=== PATIENT | female | born 1955 | race Caucasian/White ===

== ENCOUNTER 2020-04-22 10:31 | Outpatient (REF) | payer OTHER, SELFPAY ==
[2020-04-22 11:27] LABS: MANUAL DIFF FLAG NO
[2020-04-22 11:48] LABS: Basophils Percent Auto 0.4 % (0-2); Eosinophils Absolute Auto 0.2 X10*3/uL (0.0-0.4); Eosinophils Percent Auto 2.1 % (0-4); Hematocrit 40.7 % (37-47); Hemoglobin 13.3 g/dl (12.0-16.0); Imm Gran Abs Auto 0.04 X10*3/uL (0.00-0.03); Imm Gran Pct Auto 0.5 % (0.0-0.4); Lymphocytes Absolute Auto 2.6 X10*3/uL (1.2-4.9); Lymphocytes Percent Auto 31.7 % (20-40); Mean Corpuscular HGB Conc 32.7 g/dl (31.0-35.0); Mean Corpuscular Hemoglobin 28.2 pg (27.0-33.0); Mean Corpuscular Volume 86.4 fL (80-98); Mean Platelet Volume 9.9 fL (9.4-12.3); Monocytes Absolute Auto 0.6 X10*3/uL (0.1-1.2); Monocytes Percent Auto 7.4 % (2-11); Neutrophils Absolute Auto 4.7 X10*3/uL (2.0-8.3); Neutrophils Percent Auto 57.9 % (45-73); Platelet Count 232 X10*3/uL (160-400); Red Blood Count 4.71 X10*6/uL (4.20-5.50); Red Cell Distribution Width 12.8 % (11.0-16.0); White Blood Count 8.1 X10*3/uL (4.8-10.8)
[2020-04-22 12:05] LABS: Anion Gap 13 (12-20); Blood Urea Nitrogen 22 mg/dL (9-16); Calcium 9.4 mg/dL (8.4-10.2); Carbon Dioxide 30 mmol/L (22-29); Chloride 103 mmol/L (96-108); Cholesterol 198 mg/dL; Estimated Glomerular Filt Rate > 60; Glucose Fasting 85 mg/dL (60-99); HDL Cholesterol 57 mg/dL; LDL Cholesterol Calculated 105 mg/dl; Potassium 4.5 mmol/l (3.3-5.1); Sodium 141 mmol/L (135-145); Triglycerides 184 mg/dL
[2020-04-22 12:15] LABS: Vitamin D 25-OH Total 28.2 ng/mL (>30)
[2020-04-22 12:26] LABS: Microalbum/Creatinine Ratio Ur 8.7 ug/mg cr
[2020-04-22 13:55] LABS: Vitamin B12 417 pg/mL (200-900)
[2020-04-23 17:53] LABS: LDL Cholesterol Direct 126 mg/dL (<100)
[2020-05-04 04:13] LABS: Fructosamine 235 umol/L (205-285)
== END 2020-04-22 10:32 | disposition home or self-care (01) ==
LOC: HO.LAB 10:31
PROVIDERS: PCP Internal Medicine; Visit Provider Internal Medicine Endocrinology, Diabetes & Metabolism
DX: E11.42 Type 2 diabetes mellitus with diabetic polyneuropathy (principal)
CPT/HCPCS: 36415; 80048; 80061; 82043; 82306; 82607; 82985; 83721; 85025

== ENCOUNTER → 2020-04-25 07:49 | Outpatient (BNVA) | payer OTHER, SELFPAY | PROVIDERS: PCP Internal Medicine; Referring Provider Internal Medicine; Visit Provider Internal Medicine Endocrinology, Diabetes & Metabolism | DX: E11.42 Type 2 diabetes mellitus with diabetic polyneuropathy (principal); Z79.4 Long term (current) use of insulin; E78.5 Hyperlipidemia, unspecified; E66.9 Obesity, unspecified; I10 Essential (primary) hypertension | CPT/HCPCS: 82947; 99212 ==

== ENCOUNTER 2021-05-19 08:02 | Outpatient (REF) | payer OTHER, SELFPAY ==
[2021-05-19 10:38] LABS: Alanine Aminotransferase 38 U/L (0-31); Albumin Level 4.3 g/dL (3.5-5.0); Alkaline Phosphatase 82 U/L (39-117); Anion Gap 12 (12-20); Aspartate Amino Transferase 27 U/L (5-31); Bilirubin Total 0.8 mg/dL (0.0-1.0); Blood Urea Nitrogen 19 mg/dL (9-16); Calcium 9.5 mg/dL (8.4-10.2); Carbon Dioxide 30 mmol/L (22-29); Chloride 106 mmol/L (96-108); Cholesterol 202 mg/dL; Estimated Glomerular Filt Rate > 60; Glucose Fasting 96 mg/dL (60-99); HDL Cholesterol 46 mg/dL; LDL Cholesterol Calculated 116 mg/dl; Potassium 4.5 mmol/L (3.3-5.1); Sodium 143 mmol/L (135-145); Triglycerides 201 mg/dL
[2021-05-19 11:22] LABS: Microalbum/Creatinine Ratio Ur 7.6 ug/mg cr
[2021-05-20 04:52] LABS: LDL Cholesterol Direct 134 mg/dL (<100)
== END 2021-05-19 08:03 | disposition home or self-care (01) ==
LOC: HO.LAB 08:02
PROVIDERS: PCP Internal Medicine; Visit Provider Nurse Practitioner Gerontology
DX: E11.9 Type 2 diabetes mellitus without complications (principal); E78.5 Hyperlipidemia, unspecified; I10 Essential (primary) hypertension; E66.9 Obesity, unspecified; Z79.4 Long term (current) use of insulin
CPT/HCPCS: 36415; 80053; 80061; 82043; 82947; 83036; 83721; 99215; Q3014

== ENCOUNTER 2021-10-31 09:11 | Outpatient (REF) | payer OTHER, SELFPAY ==
--- NOTE | ~2021-10-31 | XR_ITS ---
EXAMINATION: XR CHEST CLINICAL INFORMATION: Cough COMPARISON: Previous chest x-ray July 2013 TECHNIQUE: 2 views of the chest were obtained. FINDINGS: The cardiac and mediastinal contours are normal. The lungs are clear. There is no pleural effusion or pneumothorax. There are degenerative changes of the spine. XR/XR chest 2V IMPRESSION: No evidence for acute disease in the chest.
[2021-10-31 12:33] LABS: Influenza A PCR NEGATIVE (Negative); Influenza B PCR NEGATIVE (Negative); Resp Syncy Virus RNA Qual PCR NEGATIVE (Negative); SARS COV2 PCR INHOUSE NEGATIVE (Negative)
== END 2021-10-31 09:12 | disposition home or self-care (01) ==
LOC: HO.HMGCX 09:11
PROVIDERS: Visit Provider Physician Assistant
DX: R05.9 Cough, unspecified (principal)
CPT/HCPCS: 0241U; 71046

== ENCOUNTER 2022-06-18 06:02 | Outpatient (REF) | payer OTHER, SELFPAY ==
[2022-06-18 06:08] LABS: MANUAL DIFF FLAG NO
[2022-06-18 07:46] LABS: Basophils Percent Auto 0.6 % (0-2); Eosinophils Absolute Auto 0.1 X10*3/uL (0.0-0.4); Eosinophils Percent Auto 2.2 % (0-4); Hematocrit 41.5 % (37.0-47.0); Hemoglobin 13.5 g/dl (12.0-16.0); Imm Gran Abs Auto 0.02 X10*3/uL (0.00-0.03); Imm Gran Pct Auto 0.3 % (0.0-0.4); Mean Corpuscular HGB Conc 32.5 g/dl (31.0-35.0); Mean Corpuscular Hemoglobin 27.6 pg (27.0-33.0); Mean Corpuscular Volume 84.7 fL (80.0-98.0); Monocytes Absolute Auto 0.6 X10*3/uL (0.1-1.2); Monocytes Percent Auto 10.2 % (2-11); Neutrophils Absolute Auto 3.5 x10*3/uL (2.0-8.3); Neutrophils Percent Auto 55.7 % (45-73); Platelet Count 225 X10*3/uL (160-400); White Blood Count 6.3 X10*3/uL (4.8-10.8)
[2022-06-18 08:27] LABS: Alanine Aminotransferase 22 U/L (0-31); Albumin Level 4.3 g/dL (3.5-5.0); Alkaline Phosphatase 84 U/L (39-117); Anion Gap 13 (12-20); Aspartate Amino Transferase 20 U/L (5-31); Blood Urea Nitrogen 15 mg/dL (9-16); Calcium 9.4 mg/dL (8.4-10.2); Carbon Dioxide 29 mmol/L (22-29); Chloride 104 mmol/L (96-108); Cholesterol 200 mg/dL; Estimated Glomerular Filt Rate > 60; Glucose Fasting 100 mg/dL (60-99); HDL Cholesterol 44 mg/dL; LDL Cholesterol Calculated 124 mg/dl; Potassium 4.8 mmol/L (3.3-5.1); Sodium 141 mmol/L (135-145); Total Protein 6.6 g/dL (6.5-8.0); Triglycerides 162 mg/dL
[2022-06-18 08:32] LABS: TSH reflex Free T4 1.04 uIU/mL (0.32-4.0); Vitamin D 25-OH Total 29.5 ng/mL (>30)
[2022-06-18 08:55] LABS: Creatinine Urine 208.87 mg/dL; Microalbum/Creatinine Ratio Ur 7.1 ug/mg cr
== END 2022-06-18 06:03 | disposition home or self-care (01) ==
LOC: HO.LAB 06:02
PROVIDERS: PCP Internal Medicine; Visit Provider Nurse Practitioner Family
DX: Z00.00 Encounter for general adult medical examination without abnormal findings (principal); E11.9 Type 2 diabetes mellitus without complications; E78.5 Hyperlipidemia, unspecified
CPT/HCPCS: 36415; 80053; 80061; 82043; 82306; 84443; 85025

== ENCOUNTER 2022-07-08 13:41 | Outpatient (REF) | payer OTHER, SELFPAY ==
--- NOTE | ~2022-07-08 | MM_ITS ---
EXAMINATION: BONE DENSITOMETRY CLINICAL INDICATION: Asymptomatic menopausal state. COMPARISON: Previous BD dated 10/22/2017 and baseline BD dated 06/21/2015. TECHNIQUE: Using a Peek@[employer] DXA System (software version: 13.1) manufactured by [employer], dual-energy x-ray absorptiometry was performed of the lumbar spine and left hip. The images are of good technical quality. Summary results are attached. FINDINGS: AP SPINE L1-L4: Current: BMD 1.445 g/cm2, Z-score 2.7, T-score 2.2, normal, 6.3% increase from previous, 0.3% increase from baseline (<5% change is not significant). Prior: BMD 1.359 g/cm2. Baseline: BMD 1.440 g/cm2. LEFT FEMUR, NECK: Current: BMD 1.057 g/cm2, Z-score 1.0, T-score 0.1, normal. Prior: BMD 1.062 g/cm2. Baseline: BMD 1.132 g/cm2. LEFT FEMUR, TOTAL: Current: BMD 1.147 g/cm2, Z-score 1.6, T-score 1.1, normal, 0.9% increase from previous, 7.1% decrease from baseline (<5% change is not significant). Prior: BMD 1.137 g/cm2. Baseline: BMD 1.234 g/cm2. IDENTIFIED RISK FACTORS: Secondary osteoporosis (early menopause, type 1 diabetes). Hysterectomy. HISTORY OF FRACTURE: None listed. MEDICATIONS: Vitamin D. MM/XR DEXA axial skeleton IMPRESSION: 1. DIAGNOSIS: Normal bone density based on the lowest T-score value of 0.1 in the femoral neck applying World Health Organization criteria. 2. 10-YEAR FRACTURE RISK PREDICTION, FRAX: According to the guidelines, FRAX calculation should only be performed on patients in the osteopenia bone density category. Therefore, FRAX was not performed on this patient.? 3. Treatment Recommendations: NOF guidelines recommend consideration for treatment in postmenopausal women and men age 50 and older presenting with the following: -A hip or vertebral (clinical or morphometric) fracture. -T-score less than or equal to -2.5 at the femoral neck or spine after appropriate evaluation to exclude secondary causes. -Low bone mass at the hip or spine and a 10-year fracture probability by FRAX of greater than or equal to 3% for hip fracture or greater than or equal to 20% for major osteoporotic fracture based on the [place] adapted WHO algorithm. 4. Other Recommendations: All treatment decisions require clinical judgment and consideration of individual patient factors, including patient preferences, comorbidities, previous drug use, risk factors not captured in the FRAX model (e.g. frailty, falls, vitamin D deficiency, increased bone turnover, interval significant decline in bone density) and possible under or overestimation of fracture risk by FRAX. FUTURE SCAN RECOMMENDATION: People with diagnosed cases of osteoporosis or at high risk for fracture should have regular bone mineral density tests. For patients eligible for Medicare, routine testing is allowed once every 2 years. The testing frequency can be increased to one year for patients who have rapidly progressing disease, those who are receiving or discontinuing medical therapy to restore bone mass, or have additional risk factors.
--- NOTE | ~2022-07-08 | MM_ITS ---
EXAMINATION: MM SCREENING DIGITAL BREAST TOMOSYNTHESIS, BILATERAL CLINICAL INFORMATION: Screening. Asymptomatic. The lifetime risk of breast cancer based on the Tyrer-Cuzick Model is 4%. COMPARISON: Mammography: 10/22/2017, 08/07/2016 TECHNIQUE: Digital breast tomosynthesis is performed in both the craniocaudal and mediolateral oblique views along with computer-aided detection (CAD). Synthesized 2D images are generated from the tomosynthesis. FINDINGS: The breasts are almost entirely fatty (ACR BI-RADS breast composition Category a). Background stromal and fibroglandular densities are stable. No developing density or architectural abnormality. Incidental intramammary node posterior 3:00 left breast noted. Again, there are scattered bilateral round, rim, predominantly dermal calcifications as well as viraj vascular calcifications. The axilla and skin contours are unremarkable. No significant changes from prior studies. MM/MM tomosynthesis screening BI IMPRESSION: No mammographic evidence of malignancy. ASSESSMENT: BI-RADS 2: Benign RECOMMENDATION: Routine annual mammography screening. This patient's information was entered into a reminder system with a target due date for their next mammogram.
== END 2022-07-08 13:42 | disposition home or self-care (01) ==
LOC: HO.MAMMO 13:41
PROVIDERS: PCP Nurse Practitioner Family; Visit Provider Nurse Practitioner Family
DX: Z12.31 Encounter for screening mammogram for malignant neoplasm of breast (principal); Z13.820 Encounter for screening for osteoporosis; Z78.0 Asymptomatic menopausal state
CPT/HCPCS: 77063; 77067; 77080

== ENCOUNTER 2022-11-23 10:13 | Outpatient (AMB) | payer OTHER, SELFPAY ==
--- NOTE | 2022-11-23 10:59 | MHC.OFFWIV ---
Intake Vital Signs 11/23/22 11:01 Height 5 ft 4.5 in BP 134/70 Blood Pressure Location Rt brachial Position Sitting Pulse 82 Pulse Source Pulse Oximeter Temp 97 F Temp Source Temporal Artery Scan Pulse Oximetry (%) 97 Oxygen Delivery Method Room Air Intake Visit Reasons: EP, Bug Bite Left Leg Intake Note: pt is here c/o bug bite on her left leg. Patient Tobacco Use Status: Never used Tobacco Allergies morphine Allergy (Unknown, Verified 11/23/22 13:14) vomiting penicillin G [Penicillin G] Allergy (Unknown, Verified 11/23/22 13:14) RASH penicillin V Allergy (Unknown, Verified 11/23/22 13:14) vomiting Sulfa (Sulfonamide Antibiotics) [Sulfa (Sulfonamides)] Allergy (Unknown, Verified 11/23/22 13:14) NAUSEA/VOMITING/RASH, vomiting, vomiting pravastatin Adverse Reaction (Unknown, Verified 11/23/22 13:14) myalgias Medication List - Last Reconciled 11/23/22 by Feliciano Marquez MD albuterol sulfate 90 mcg/actuation 2 puffs inhalation Q6H PRN aspirin (Adult Aspirin Regimen) 81 mg PO DAILY blood sugar diagnostic (FreeStyle Lite Strips) As directed 3 x/day cholecalciferol (vitamin D3) 25 mcg PO DAILY ciprofloxacin HCl 250 mg PO BID ezetimibe 10 mg PO DAILY insulin glargine (Lantus Solostar U-100 Insulin) 25 units (0.25 mL) subcut DAILY 30 days lancets (FreeStyle Lancets) As directed liraglutide (Victoza 3-Geremias) 1.8 mg (0.3 mL) subcut DAILY lisinopril 20 mg PO DAILY 30 days loratadine (Allergy Relief (loratadine)) 10 mg PO DAILY 90 days omeprazole 20 mg PO QAM pen needle, diabetic (BD Ultra-Fine Cele Pen Needle) 1 ea subcut BID 30 days Do you need a note to return to daycare/school/sports/work: No HPI EP, Bug Bite Left Leg HPI Details 67-year-old female presents to the office for a sick visit. Patient is reporting a bug bite on the left leg. Has not been feeling well in the last 48 hours. Feeling tired and decreased appetite. Blood sugars are fluctuating. 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 Obesity (BMI 30-39.9) Surgical History History of back surgery Hx of hernia repair Hx of hysterectomy Hx of shoulder surgery Family History Mother No known problems Father Diabetes Other Substance use disorder Social History Household Members: None Housing: House Alcohol intake: current Alcohol intake frequency: holidays/special occasions only Patient Tobacco Use Status: Never used Tobacco e-Cigarette/Vaping Use: Never Used Second Hand Smoke Exposure: No service: No Current occupational status: retired and disabled Cognitive needs: No Hearing needs: No Vision needs: Yes (Glasses) Physical Exam Vital Signs: Last Vital Signs Temp 97 F 11/23/22 11:01 Pulse 82 11/23/22 11:01 BP 134/70 11/23/22 11:01 Pulse Ox 97 11/23/22 11:01 Oxygen Delivery Method Room Air 11/23/22 11:01 Skin Other: Left leg: Thigh: Posterior surface: 2 erythematous areas with central hyperemia. Minimal induration. Assessment & Plan Assessment & Plan (1) Cellulitis: Code(s): L03.90 - Cellulitis, unspecified Plan: If symptoms do not improve to follow-up here. Antibiotics called in. Medications: New ciprofloxacin HCl 250 mg PO BID 10 tabs 0RF Coding Level of Care Code Est Pt Level 3 (70924) Diagnoses Cellulitis L03.90
[2022-11-23 11:01] VITALS: BP 134/70; PULSE 82; TEMP 36.1; O2SAT 97
== END 2022-11-23 11:36 | disposition home or self-care (01) ==
PROVIDERS: PCP Nurse Practitioner Family; Visit Provider Internal Medicine
DX: L03.90 Cellulitis, unspecified (principal)
CPT/HCPCS: 99213

== ENCOUNTER 2023-08-23 08:22 | Outpatient (REF) | payer OTHER, SELFPAY | END 2023-08-23 08:23 | disposition home or self-care (01) | LOC: HO.MAMMO 08:22 | PROVIDERS: PCP Internal Medicine; Visit Provider Internal Medicine | DX: Z12.31 Encounter for screening mammogram for malignant neoplasm of breast (principal) | CPT/HCPCS: 77063; 77067 ==

== ENCOUNTER → 2023-08-23 09:15 | Outpatient (BNV) | payer OTHER, SELFPAY | PROVIDERS: PCP Internal Medicine; Visit Provider Radiology Diagnostic Radiology | DX: Z12.31 Encounter for screening mammogram for malignant neoplasm of breast (principal) | CPT/HCPCS: 77063; 77067 ==

== ENCOUNTER 2023-09-27 17:09 | Outpatient (AMB) | payer MEDICARE, OTHER, SELFPAY ==
--- NOTE | 2023-09-27 17:37 | MHC.PC.OV ---
Vital Signs 09/27/23 17:38 Height 5 ft 4.5 in Weight 217 lb BMI 36.7 BP 170/82 H Blood Pressure Location Lt brachial Position Sitting Intake Visit Reasons: Annual PE- see comments Intake Note: Patient here for an annual physical Training Administrator Required: No Accompanied by: Self / Same As Patient Allergies morphine Allergy (Unknown, Verified 09/27/23 17:59) vomiting penicillin G [Penicillin G] Allergy (Unknown, Verified 09/27/23 17:59) RASH penicillin V Allergy (Unknown, Verified 09/27/23 17:59) vomiting Sulfa (Sulfonamide Antibiotics) [Sulfa (Sulfonamides)] Allergy (Unknown, Verified 09/27/23 17:59) NAUSEA/VOMITING/RASH, vomiting, vomiting pravastatin Adverse Reaction (Unknown, Verified 09/27/23 17:59) myalgias metformin Adverse Reaction (Intermediate, Uncoded 09/27/23 18:04) abdominal discomfort Medication List - Last Reconciled 09/27/23 by Winnie Gandara MD albuterol sulfate 90 mcg/actuation 2 puffs inhalation Q6H PRN aspirin (Adult Aspirin Regimen) 81 mg PO DAILY blood sugar diagnostic (FreeStyle Lite Strips) As directed 3 x/day cholecalciferol (vitamin D3) 25 mcg PO DAILY ezetimibe 10 mg PO DAILY insulin glargine (Lantus Solostar U-100 Insulin) 25 units (0.25 mL) subcut DAILY 30 days lancets (FreeStyle Lancets) As directed lisinopril 20 mg PO DAILY 30 days omeprazole 20 mg PO QAM pen needle, diabetic (BD Ultra-Fine Cele Pen Needle) 1 ea subcut BID 30 days Tobacco use date assessed: 09/27/23 Fall risk assessment: 1 Fall in past year Last assessed Fall Risk: 09/27/23 Dental Screening Dental Screen Date: 09/27/23 Did you have a dental visit in the last 12 months?: Yes Did you have a dental problem in the last 6 months where you did not have access to dental care?: No Was dental information given to patient?: Patient has dentist HPI HPI Comments History of Present Illness Details This is a 67-year-old female with diabetes mellitus type 2 that comes for her physical exam. A1c within goal. Diabetic eye exam will be tomorrow. No need for Pap smear due to age and hysterectomy. Mammogram done August 2023 was normal. Had a Cologuard in June 2022 and next Cologuard should be 2025. No chest pain or shortness of breath. Doing well. Blood pressure elevated because she has been out of lisinopril for months. Blood pressure will be recheck in 3 weeks by nurse navigator. 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 Diabetes type 2, controlled Surgical History History of back surgery Hx of shoulder surgery Hx of hernia repair Hx of hysterectomy Family History Mother No known problems Father Diabetes Other Substance use disorder Social History Household Members: None Housing: House Alcohol intake: current Alcohol intake frequency: holidays/special occasions only Patient Tobacco Use Status: Never used Tobacco e-Cigarette/Vaping Use: Never Used Second Hand Smoke Exposure: No service: No Current occupational status: retired and disabled Cognitive needs: No Hearing needs: No Vision needs: Yes (Glasses) Questionnaire PHQ-9 Over the last 2 weeks, how often have you been bothered by any of the following problems? 1. Little interest or pleasure in doing things: not at all 2. Feeling down, depressed, or hopeless: not at all 3. Trouble falling or staying asleep, or sleeping too much: not at all 4. Feeling tired or having little energy: not at all 5. Poor appetite or overeating: not at all 6. Feeling bad about yourself - or that you are a failure or have let yourself or your family down: not at all 7. Trouble concentrating on things, such as reading the newspaper or watching television: not at all 8. Moving or speaking so slowly that other people could have noticed. Or the opposite - being so fidgety or restless that you have been moving around a lot more than usual: not at all 9. Thoughts that you would be better off or of hurting yourself in some way: not at all Total score: 0 Depression Screening Interpretation: Negative Depression Screening Done: Yes 36079 - PHQ-9 Billing: Yes Source: Developed by Drs. Guero Esparza, Elizabet Maldonado, Cecil Cedeno and colleagues, with an educational matthew from [employer]. Thrive Questionnaire Date Thrive assessed: 09/27/23 I am a: Patient What is your living situation today?: I have a steady place to live Within the past 12 months, did the food you bought not last and you didn't have the money to get more?: Never true Within the past 12 months, did you worry whether your food would run out before you got money to buy more?: Never true Do you have trouble paying for medicines?: No Do you have trouble getting transportation to medical appointments?: No Do you have trouble paying your heating and electricity bill?: No Do you have trouble taking care of your child, family member or friend?: No Do you have trouble with day-to-day activities such as bathing, preparing meals, shopping, managing finances, etc.?: No Are you currently unemployed and looking for a job?: No Are you interested in more education?: No Please select the resources that you would like help with: None Currently or been in a relationship where the following occur: no concerns reported THRIVE Score: 0 AUDIT C Alcohol Use Questionnaire (AUDIT-C) 1. How often do you have a drink containing alcohol?: Never Total Score: 0 KEITH-7 AMB Questionnaire KEITH-7 Date KEITH - 7 assessed: 09/27/23 Feeling nervous, anxious, or on edge: 0 = Not at all Not being able to stop or control worryin = Not at all Worrying too much about different things: 0 = Not at all Trouble relaxin = Not at all Being so restless that it is hard to sit still: 0 = Not at all Becoming easily annoyed or irritable: 0 = Not at all Feeling afraid as if something awful might happen: 0 = Not at all Total KEITH-7 score (0-4 normal; 5-9 mild; 10-14 moderate; 15-21 severe): 0 Source: Developed by Elizabet Dominique Joel, Cecil Cedeno and colleagues, with an educational matthew from [employer]. KEITH-7 Assessment Billing KEITH-7 Assessment Tool: KEITH-7 Assessment 99803 Review of Systems Const All systems reviewed & are unremarkable except as noted in HPI and below Eyes Reports no additional complaints, Denies change in vision and Denies other visual disturbances Card Denies chest pain at rest, Denies chest pain with activity, Denies edema, Denies irregular heart rhythm, Denies claudication, Denies dyspnea, Denies dyspnea on exertion, Denies orthopnea, Denies paroxysmal nocturnal dyspnea and Denies slow heart rate Resp Denies cough, Denies dyspnea and Denies dyspnea on exertion Physical exam (Primary Care) Vital Signs: Last Vital Signs BP 170/82 H 09/27/23 17:38 BMI result Body Mass Index 36.7 Tobacco/Smoking Status: Tobacco use Status Tobacco use date assessed 09/27/23 09/27/23 17:47 Patient Tobacco Use Status Never used Tobacco 09/27/23 17:47 e-Cigarette/Vaping Use Never Used 09/27/23 17:47 PHQ-9: PHQ-9 Score PHQ-9: Total score 0 09/28/23 07:35 Depression Screening Interpretation: Negative Thrive Assessment: Date of Thrive Assessment Date Thrive assessed 09/27/23 09/27/23 17:47 Currently or been in a relationship where the following occur: no concerns reported Const Orientation/consciousness: patient oriented x3 HENMT Head: Yes normal to inspection, Yes normocephalic and Yes atraumatic Ears: external ears normal Eyes General: appearance normal, both eyes and all related structures Eyelids: Yes eyelids normal Conjunctivae: conjunctivae normal Neck Neck: Yes normal visual inspection and Yes supple Resp Effort & Inspection: normal respiratory effort Auscultation: clear to auscultation bilaterally Cardio Jugular venous distension: no JVD Rate: regular rate Rhythm: regular rhythm Heart sounds: S1 normal heart sound present and S2 normal heart sound present GI Inspection: Yes normal to inspection Palpation (GI): Soft to palpation and nontender Auscultation: normal bowel sounds Skin General skin exam: no rashes or lesions noted Neuro General: patient oriented x3 and no focal motor deficits Extrem General: Yes full ROM Psych Appearance: grossly normal Assessment and Plan Assessment & Plan (1) Adult general medical exam: Code(s): Z00.00 - Encounter for general adult medical examination without abnormal findings Plan: Repeat in a year. 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 Start Ozempic. A1c goal is equal or less than 7%. Orders: Orders Lipid Panel Today E78.5 - Hyperlipidemia, unspecified Comprehensive [place]. Panel Fast Today E11.9 - Type 2 diabetes mellitus without complications AMB Hemoglobin A1c 09/27/23 E11.9 - Type 2 diabetes mellitus without complications Microalbumin, Random (w Creat) Today E11.9 - Type 2 diabetes mellitus without complications Vitamin D 25-OH Total Today E55.9 - Vitamin D deficiency, unspecified Medications: New semaglutide (Ozempic) for 4 weeks 0.25 mg (0.368 mL) subcut QWEEK 1.472 mL 0RF 4 weeks E11.9 - Type 2 diabetes mellitus without complications Refilled lisinopril 20 mg PO DAILY 30 tabs 6RF 30 days E11.9 - Type 2 diabetes mellitus without complications Coding Level of Care Code Est Pt Prev Care >65y(98831) Diagnoses Adult general medical exam Z00.00 Diabetes mellitus, with long-term current use of insulin E11.9; Z79.4 Additional Codes KEITH-7 Assessment Billing - KEITH-7 Assessment Tool: KEITH-7 Assessment 48137 ([id number]) Time Spent (min) 33
[2023-09-27 17:38] VITALS: BP 170/82; BMI 36.7
== END 2023-09-27 18:15 | disposition home or self-care (01) ==
PROVIDERS: PCP Internal Medicine; Visit Provider Internal Medicine
DX: Z00.00 Encounter for general adult medical examination without abnormal findings (principal); E11.9 Type 2 diabetes mellitus without complications; Z79.4 Long term (current) use of insulin
CPT/HCPCS: 99397

== ENCOUNTER 2023-09-28 06:45 | Outpatient (REF) | payer MEDICARE, SELFPAY ==
[2023-09-28 08:37] LABS: Alanine Aminotransferase 29 U/L (0-31); Albumin Level 4.3 g/dL (3.5-5.0); Alkaline Phosphatase 81 U/L (39-117); Anion Gap 13 (12-20); Aspartate Amino Transferase 23 U/L (5-31); Bilirubin Total 0.6 mg/dL (0.0-1.0); Blood Urea Nitrogen 21 mg/dL (9-16); Carbon Dioxide 29 mmol/L (22-29); Chloride 105 mmol/L (96-108); Cholesterol 187 mg/dL (<200); Estimated Glomerular Filt Rate > 60; Glucose Fasting 113 mg/dL (60-99); HDL Cholesterol 51 mg/dL (>40); LDL Cholesterol Calculated 108 mg/dL (<100); Potassium 4.4 mmol/L (3.3-5.1); Sodium 143 mmol/L (135-145); Total Protein 7.1 g/dL (6.5-8.0); Triglycerides 144 mg/dL (<150)
[2023-09-28 08:59] LABS: Vitamin D 25-OH Total 41.9 ng/mL (>30)
[2023-09-28 09:13] LABS: Microalbum/Creatinine Ratio Ur 9.1 ug/mg cr (<30)
== END 2023-09-28 06:46 | disposition home or self-care (01) ==
LOC: HO.LAB 06:45
PROVIDERS: PCP Internal Medicine; Visit Provider Internal Medicine
DX: E11.9 Type 2 diabetes mellitus without complications (principal); E78.5 Hyperlipidemia, unspecified; E55.9 Vitamin D deficiency, unspecified; I10 Essential (primary) hypertension
CPT/HCPCS: 36415; 80053; 80061; 82043; 82306; 82570

== ENCOUNTER 2023-12-09 07:09 | Outpatient (AMB) | payer MEDICARE, SELFPAY ==
--- NOTE | 2023-12-09 07:36 | A.OFFPC_ITS ---
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 Accompanied by: Self / Same As Patient Allergies morphine Allergy (Unknown, Verified 12/09/23 07:44) vomiting penicillin G [Penicillin G] Allergy (Unknown, Verified 12/09/23 07:44) RASH penicillin V Allergy (Unknown, Verified 12/09/23 07:44) vomiting Sulfa (Sulfonamide Antibiotics) [Sulfa (Sulfonamides)] Allergy (Unknown, Verified 12/09/23 07:44) NAUSEA/VOMITING/RASH, vomiting, vomiting pravastatin Adverse Reaction (Unknown, Verified 12/09/23 07:44) myalgias metformin Adverse Reaction (Intermediate, Uncoded 12/09/23 07:44) abdominal discomfort Medication List - Last Reconciled 12/09/23 by Winnie Gandara MD albuterol sulfate 90 mcg/actuation 2 puffs inhalation Q6H PRN aspirin (Adult Aspirin Regimen) 81 mg PO DAILY blood sugar diagnostic (FreeStyle Lite Strips) As directed 3 x/day cholecalciferol (vitamin D3) 25 mcg PO DAILY ezetimibe 10 mg PO DAILY insulin glargine (Lantus Solostar U-100 Insulin) 25 units (0.25 mL) subcut DAILY 30 days lancets (FreeStyle Lancets) As directed lisinopril 20 mg PO DAILY 30 days omeprazole 20 mg PO QAM pen needle, diabetic (BD Ultra-Fine Cele Pen Needle) 1 ea subcut BID 30 days semaglutide (Ozempic) 0.5 mg (0.736 mL) subcut QWEEK 4 weeks semaglutide (Ozempic) 2 mg (0.75 mL) subcut QWEEK 4 weeks Tobacco use date assessed: 09/27/23 Fall risk assessment: No Falls in past year Last assessed Fall Risk: 12/09/23 Dental Screening Dental Screen Date: 09/27/23 HPI HPI Comments History of Present Illness Details This is a 68-year-old female with hypertension, dyslipidemia and diabetes mellitus type 2 on long-term current use of insulin that comes today complaining of a left axillary mass that she has palpated for about 2-4 weeks. Last mammogram was 3 months ago and it was normal. She denies any nipple discharge or retraction. No mass breast. 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 She does not know the type of cancer. We will try to get the records from [facility]. Blood pressure stable. Last LDL was not on goal and was advise low-cholesterol diet. A1c within goal. 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 Diabetes type 2, controlled Surgical History History of back surgery Hx of shoulder surgery Hx of hernia repair Hx of hysterectomy Family History Mother No known problems Father Diabetes Other Substance use disorder Social History Household Members: None Housing: House Alcohol intake: current Alcohol intake frequency: holidays/special occasions only Patient Tobacco Use Status: Never used Tobacco e-Cigarette/Vaping Use: Never Used Second Hand Smoke Exposure: No service: No Current occupational status: retired and disabled Cognitive needs: No Hearing needs: No Vision needs: Yes (Glasses) Questionnaire Thrive Questionnaire Date Thrive assessed: 09/27/23 KEITH-7 AMB Questionnaire KEITH-7 Date KEITH - 7 assessed: 09/27/23 Source: Developed by Drs. Guero Esparza, Elizabet Maldonado, Cecil Cedeno and colleagues, with an educational matthew from [employer]. Review of Systems Const All systems reviewed & are unremarkable except as noted in HPI and below Card Denies chest pain at rest, Denies chest pain with activity, Denies edema, Denies irregular heart rhythm, Denies claudication, Denies dyspnea, Denies dyspnea on exertion, Denies orthopnea, Denies paroxysmal nocturnal dyspnea and Denies slow heart rate Resp Denies cough, Denies dyspnea and Denies dyspnea on exertion Skin/Breast Reports breast mass (left axillary mass) Physical exam (Primary Care) Vital Signs: Last Vital Signs BP 136/82 12/09/23 07:39 BMI result Body Mass Index 35.7 BMI Assessment/Plan discussion: High BMI High, discussed plan: lifestyle, weight reduction, dietary and physical activity Tobacco/Smoking Status: Tobacco use Status Tobacco use date assessed 09/27/23 12/09/23 07:38 Patient Tobacco Use Status Never used Tobacco 12/09/23 07:38 e-Cigarette/Vaping Use Never Used 12/09/23 07:38 Thrive Assessment: Date of Thrive Assessment Date Thrive assessed 09/27/23 12/09/23 07:38 Chest Breast/axilla palpation: abnormal palpation of the axilla (left axillary mass) Resp Effort & Inspection: normal respiratory effort Auscultation: clear to auscultation bilaterally Cardio Jugular venous distension: no JVD Rate: regular rate Rhythm: regular rhythm Heart sounds: S1 normal heart sound present and S2 normal heart sound present Extrem General: Yes full ROM Results AMB Hemoglobin A1c AMB Hemoglobin A1c 6.5 % Last Edit by JESSICA Rosas on 12/09/23 07:4 8 Assessment and Plan Assessment & Plan (1) Mass of left axilla: Code(s): R22.32 - Localized swelling, mass and lump, left upper limb Plan: Ultrasound and mammogram diagnostic ordered. Referred to General surgery. 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 A1c goal is equal or less than 7%. Increase Ozempic to 1 mg. (3) Hypertension: Code(s): I10 - Essential (primary) hypertension Qualifiers: Hypertension type: primary hypertension Qualified Code(s): I10 - Essential (primary) hypertension Plan: Continue lisinopril. Blood pressure goal is equal or less than 130/80. (4) Dyslipidemia: Code(s): E78.5 - Hyperlipidemia, unspecified Plan: Continue Zetia. LDL goal is less than 70. 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 MM diagnostic mammo unilat LT Today R22.32 - Localized swelling, mass and lump, left upper limb Complete Blood Count Auto Diff Today D64.9 - Anemia, unspecified US breast LT complete Today R22.32 - Localized swelling, mass and lump, left upper limb Referrals General Surgery Referral R22.32 - Localized swelling, mass and lump, left upper limb Medications: New semaglutide (Ozempic) 1 mg (0.75 mL) subcut QWEEK 4 weeks 3 mL 0RF E11.9 - Type 2 diabetes mellitus without complications, Z79.4 - [facility] (current) use of insulin Discontinued semaglutide (Ozempic) Discontinued Reason: Patient Completed Course 0.5 mg (0.736 mL) subcut QWEEK 4 weeks 2.944 mL 0RF Coding Level of Care Code Est Pt Level 4 (04939) Complex EM visit Add On G2211 Diagnoses Mass of left axilla R22.32 Type 2 diabetes mellitus without complication, with long-term current use of insulin E11.9; Z79.4 Diabetes mellitus type: type 2 Diabetes mellitus complication status: without complication Primary hypertension I10 Hypertension type: primary hypertension Dyslipidemia E78.5 Time Spent (min) 22
[2023-12-09 07:39] VITALS: BP 136/82; BMI 35.7
== END 2023-12-09 08:00 | disposition home or self-care (01) ==
PROVIDERS: PCP Internal Medicine; Visit Provider Internal Medicine
DX: R22.32 Localized swelling, mass and lump, left upper limb (principal); E11.9 Type 2 diabetes mellitus without complications; Z79.4 Long term (current) use of insulin; I10 Essential (primary) hypertension; E78.5 Hyperlipidemia, unspecified
CPT/HCPCS: 83036; 99214; G2211

== ENCOUNTER 2023-12-09 16:17 | Outpatient (REF) | payer MEDICARE, SELFPAY ==
[2023-12-09 16:28] LABS: MANUAL DIFF FLAG NO
[2023-12-09 16:52] LABS: Basophils Absolute Auto 0.1 X10*3/uL (0.0-0.2); Basophils Percent Auto 0.7 % (0-2); Eosinophils Absolute Auto 0.1 X10*3/uL (0.0-0.4); Eosinophils Percent Auto 1.9 % (0-4); Hematocrit 41.9 % (37.0-47.0); Hemoglobin 14.2 g/dl (12.0-16.0); Imm Gran Abs Auto 0.03 X10*3/uL (0.00-0.03); Imm Gran Pct Auto 0.4 % (0.0-0.4); Lymphocytes Absolute Auto 2.6 X10*3/uL (1.2-4.9); Mean Corpuscular HGB Conc 33.9 g/dl (31.0-35.0); Mean Corpuscular Hemoglobin 28.7 pg (27.0-33.0); Mean Corpuscular Volume 84.8 fL (80.0-98.0); Mean Platelet Volume 9.8 fL (9.4-12.3); Monocytes Absolute Auto 0.5 X10*3/uL (0.1-1.2); Monocytes Percent Auto 6.9 % (2-11); Neutrophils Absolute Auto 4.2 x10*3/uL (2.0-8.3); Neutrophils Percent Auto 56.1 % (45-73); Platelet Count 238 X10*3/uL (160-400); Red Blood Count 4.94 X10*6/uL (4.20-5.50); Red Cell Distribution Width 13.1 % (11.0-16.0); White Blood Count 7.6 X10*3/uL (4.8-10.8)
[2023-12-09 17:26] LABS: Creatinine Urine 189.86 mg/dL; Microalbum/Creatinine Ratio Ur 6.8 ug/mg cr (<30)
[2023-12-09 17:30] LABS: Alanine Aminotransferase 30 U/L (0-31); Albumin Level 4.5 g/dL (3.5-5.0); Alkaline Phosphatase 76 U/L (39-117); Anion Gap 12 (12-20); Aspartate Amino Transferase 28 U/L (5-31); Bilirubin Total 0.8 mg/dL (0.0-1.0); Blood Urea Nitrogen 20 mg/dL (9-16); Calcium 10.1 mg/dL (8.4-10.2); Carbon Dioxide 29 mmol/L (22-29); Chloride 106 mmol/L (96-108); Cholesterol 187 mg/dL (<200); Estimated Glomerular Filt Rate > 60; Glucose Fasting 161 mg/dL (60-99); HDL Cholesterol 52 mg/dL (>40); LDL Cholesterol Calculated 95 mg/dL (<100); Potassium 3.9 mmol/L (3.3-5.1); Sodium 143 mmol/L (135-145); Total Protein 7.3 g/dL (6.5-8.0); Triglycerides 204 mg/dL (<150)
[2023-12-09 17:47] LABS: Vitamin D 25-OH Total 56.4 ng/mL (>30)
== END 2023-12-09 16:18 | disposition home or self-care (01) ==
LOC: HO.LAB 16:17
PROVIDERS: PCP Internal Medicine; Visit Provider Internal Medicine
DX: E11.9 Type 2 diabetes mellitus without complications (principal); D64.9 Anemia, unspecified; I10 Essential (primary) hypertension; E55.9 Vitamin D deficiency, unspecified; E78.5 Hyperlipidemia, unspecified
CPT/HCPCS: 36415; 80053; 80061; 82043; 82306; 82570; 85025

== ENCOUNTER 2024-01-05 13:26 | Outpatient (REF) | payer MEDICARE, SELFPAY ==
--- NOTE | ~2024-01-05 | US_ITS ---
EXAMINATION: US DIAGNOSTIC ULTRASOUND BREAST, LEFT CLINICAL INFORMATION: 68-year-old female, recent mammography 08/23/2023 which was normal, complaining of palpable abnormality in her left axilla. COMPARISON: Screening mammography 08/23/2023. TECHNIQUE: Ultrasound of the left axilla is performed with real-time bowman scale imaging and color Doppler. FINDINGS: There is no focal suspicious finding. There are 2 benign-appearing lymph nodes with thin cortex, prominent fatty yuko, and normal multiple morphology. One is rather elongated measuring 3.4 cm in length, is present on the prior mammogram, and and correlates well with the palpable focus. This finding is benign. No further follow-up recommended. Results are discussed with the patient at time of visit. US/US breast LT limited mamm only IMPRESSION: -Benign left axillary lymph nodes as detailed. No findings suspicious for malignancy. -Recommend the patient resume routine annual screening mammography. ASSESSMENT: BI-RADS 2: Benign RECOMMENDATION: Routine annual mammography screening. This patient's information was entered into a reminder system with a target due date for their next mammogram. Electronically signed by: Kareem Jefferson MD 01/05/2024 04:38 PM EDT
== END 2024-01-05 13:27 | disposition home or self-care (01) ==
LOC: HO.MAMMO 13:26
PROVIDERS: PCP Internal Medicine; Visit Provider Internal Medicine
DX: N63.21 Unspecified lump in the left breast, upper outer quadrant (principal)
CPT/HCPCS: 76642

== ENCOUNTER → 2024-01-05 15:00 | Outpatient (BNV) | payer MEDICARE, SELFPAY | PROVIDERS: PCP Internal Medicine; Visit Provider Radiology Diagnostic Radiology | DX: N63.32 Unspecified lump in axillary tail of the left breast (principal) | CPT/HCPCS: 76642 ==

== ENCOUNTER 2024-02-21 07:24 | Outpatient (AMB) | payer MEDICARE, SELFPAY ==
[2024-02-21 07:36] VITALS: BP 130/72; BMI 34.8
--- NOTE | 2024-02-21 07:36 | MHC.PC.OV ---
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 Accompanied by: Self / Same As Patient Allergies morphine Allergy (Unknown, Verified 02/21/24 07:54) vomiting penicillin G [Penicillin G] Allergy (Unknown, Verified 02/21/24 07:54) RASH penicillin V Allergy (Unknown, Verified 02/21/24 07:54) vomiting Sulfa (Sulfonamide Antibiotics) [Sulfa (Sulfonamides)] Allergy (Unknown, Verified 02/21/24 07:54) NAUSEA/VOMITING/RASH, vomiting, vomiting pravastatin Adverse Reaction (Unknown, Verified 02/21/24 07:54) myalgias metformin Adverse Reaction (Intermediate, Uncoded 02/21/24 07:54) abdominal discomfort Medication List - Last Reconciled 02/21/24 by Winnie Gandara MD albuterol sulfate 90 mcg/actuation 2 puffs inhalation Q6H PRN aspirin (Adult Aspirin Regimen) 81 mg PO DAILY 90 days blood sugar diagnostic (FreeStyle Lite Strips) As directed 3 x/day cholecalciferol (vitamin D3) 25 mcg PO DAILY ezetimibe 10 mg PO DAILY 90 days insulin glargine (Lantus Solostar U-100 Insulin) 25 units (0.25 mL) subcut DAILY 90 days lancets (FreeStyle Lancets) As directed lisinopril 20 mg PO DAILY 90 days omeprazole 20 mg PO QAM pen needle, diabetic (BD Ultra-Fine Cele Pen Needle) 1 ea subcut DAILY 90 days semaglutide (Ozempic) 2 mg (0.75 mL) subcut QWEEK 4 weeks semaglutide (Ozempic) 1 mg (0.75 mL) subcut QWEEK 4 weeks Tobacco use date assessed: 09/27/23 Fall risk assessment: No Falls in past year Last assessed Fall Risk: 02/21/24 Dental Screening Dental Screen Date: 02/21/24 Did you have a dental visit in the last 12 months?: No Did you have a dental problem in the last 6 months where you did not have access to dental care?: No Was dental information given to patient?: Patient has dentist HPI HPI Comments History of Present Illness Details This is a 68-year-old female with diabetes mellitus type 2 on long-term current use of insulin, hypertension, hyperlipidemia, GERD and low vitamin-D that comes today for follow-up on her conditions. Last A1c was within goal. Blood pressure stable. LDL not on goal and dietary changes were advised. Lipid panel will be repeated. GERD stable with PPIs. On vitamin-D supplements for her low vitamin-D. She denies any chest pain or shortness on breath. [facility] Medical History (Updated 02/21/24 @ 07:59 by Winnie Gandara MD) Hx of myocardial infarction Obesity (BMI 30-39.9) Dyslipidemia Hypertension Diabetic polyneuropathy associated with type 2 diabetes mellitus [facility] (current) use of insulin Diabetes type 2, controlled Surgical History History of back surgery Hx of shoulder surgery Hx of hernia repair Hx of hysterectomy Family History Mother No known problems Father Diabetes Other Substance use disorder Social History Household Members: None Housing: House Alcohol intake: current Alcohol intake frequency: holidays/special occasions only Patient Tobacco Use Status: Never used Tobacco e-Cigarette/Vaping Use: Never Used Second Hand Smoke Exposure: No service: No Current occupational status: retired and disabled Cognitive needs: No Hearing needs: No Vision needs: Yes (Glasses) Questionnaire Thrive Questionnaire Date Thrive assessed: 09/27/23 Are you currently unemployed and looking for a job?: No KEITH-7 AMB Questionnaire KEITH-7 Date KEITH - 7 assessed: 09/27/23 Source: Developed by Drs. Guero Esparza, Elizabet Maldonado, Cecil Cedeno and colleagues, with an educational matthew from [employer]. Review of Systems Const All systems reviewed & are unremarkable except as noted in HPI and below Card Denies chest pain at rest, Denies chest pain with activity, Denies edema, Denies irregular heart rhythm, Denies claudication, Denies dyspnea, Denies dyspnea on exertion, Denies orthopnea, Denies paroxysmal nocturnal dyspnea and Denies slow heart rate Resp Denies cough, Denies dyspnea and Denies dyspnea on exertion GI Denies abdominal pain, Denies change in bowel habits, Denies excessive flatus, Denies nausea and Denies vomiting Denies urinary incontinence, Denies urinary hesitancy and Denies urinary urgency Musc Denies abnormal gait, Denies atrophy, Denies deformity and Denies limited range of motion Skin/Breast Denies bleeding lesions, Denies changing lesions and Denies rash Neuro Denies abnormal gait, Denies behavioral changes and Denies lack of coordination Psych Denies behavioral changes Physical exam (Primary Care) Vital Signs: Last Vital Signs BP 130/72 02/21/24 07:36 BMI result Body Mass Index 34.8 Tobacco/Smoking Status: Tobacco use Status Tobacco use date assessed 09/27/23 02/21/24 07:40 Patient Tobacco Use Status Never used Tobacco 02/21/24 07:40 e-Cigarette/Vaping Use Never Used 02/21/24 07:40 Thrive Assessment: Date of Thrive Assessment Date Thrive assessed 09/27/23 02/21/24 07:40 Resp Effort & Inspection: normal respiratory effort Auscultation: clear to auscultation bilaterally Cardio Jugular venous distension: no JVD Rate: regular rate Rhythm: regular rhythm Heart sounds: S1 normal heart sound present and S2 normal heart sound present Office Procedures Flu Questionnaire Does the patient have a severe egg allergy?: No Does the patient have severe life threatening allergies?: No Does the patient have a fever or illness today?: No Has the patient ever had Guillain-[place] Syndrome?: No Has the patient ever had any past reaction to a flu shot?: No Immunizations Fluarix Triv [id number] (PF) 45 mcg (15 mcg x 3)/0.5 mL IM syringe Performing Provider: Winnie Gandara MD Per[facility] [place] [facility] Administered by: JESSICA Rosas on 02/21/24 08:17 Dose Route Admin Location Dispensed Lot Number Expiration Date [facility] [place] Per[employer] 0.5 mL IM Left Deltoid 0.5 mL [id number] 11/13/24 [id number] [employer] VIS Given Date VIS Provided VIS Publication Date 02/21/24 Single Vaccine 20 Eligibility Eligibility Date Funding Source Not [facility] Eligible 02/21/24 Private Coding Level of Care Code Est Pt Level 4 (85900) Complex EM visit Add On G2211 Diagnoses Type 2 diabetes mellitus without complication, with long-term current use of insulin E11.9; Z79.4 Diabetes mellitus type: type 2 Diabetes mellitus complication status: without complication Hypovitaminosis D E55.9 GERD (gastroesophageal reflux disease) K21.9 Primary hypertension I10 Hypertension type: primary hypertension Dyslipidemia E78.5 Time Spent (min) 21 Assessment & Plan Assessment & Plan (1) Diabetes mellitus, with long-term current use of insulin: Code(s): E11.9 - Type 2 diabetes mellitus without complications; 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 A1c goal is equal less than 7%. Diabetic eye exam was done August of this year. (2) Hypovitaminosis D: Code(s): E55.9 - Vitamin D deficiency, unspecified Category: Medical Plan: Continue vitamin-D supplements. (3) GERD (gastroesophageal reflux disease): Code(s): K21.9 - Gastro-esophageal reflux disease without esophagitis Category: Medical Plan: Continue PPIs (4) Hypertension: Code(s): I10 - Essential (primary) hypertension Category: Medical Qualifiers: Hypertension type: primary hypertension Qualified Code(s): I10 - Essential (primary) hypertension Plan: Continue lisinopril. Blood pressure is equal or less than 130/80. (5) Dyslipidemia: Code(s): E78.5 - Hyperlipidemia, unspecified Category: Medical Plan: Continue Zetia. Repeat lipid panel. LDL goal is less than 70. Orders: Orders Microalbumin, Random (w Creat) Today R80.9 - Proteinuria, unspecified Comprehensive [place]. 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
== END 2024-02-21 08:08 | disposition home or self-care (01) ==
PROVIDERS: PCP Internal Medicine; Visit Provider Internal Medicine
DX: E11.9 Type 2 diabetes mellitus without complications (principal); Z79.4 Long term (current) use of insulin; E55.9 Vitamin D deficiency, unspecified; K21.9 Gastro-esophageal reflux disease without esophagitis; I10 Essential (primary) hypertension; E78.5 Hyperlipidemia, unspecified; Z23 Encounter for immunization

== ENCOUNTER → 2024-02-21 07:24 | Outpatient (BNVA) | payer MEDICARE, SELFPAY | PROVIDERS: PCP Internal Medicine; Visit Provider Internal Medicine | DX: Z23 Encounter for immunization (principal); E11.9 Type 2 diabetes mellitus without complications; E55.9 Vitamin D deficiency, unspecified; E78.5 Hyperlipidemia, unspecified; K21.9 Gastro-esophageal reflux disease without esophagitis; Z79.4 Long term (current) use of insulin | CPT/HCPCS: 90471; 90656; 99212 ==

== ENCOUNTER 2024-03-27 06:17 | Outpatient (REF) | payer MEDICARE, SELFPAY ==
[2024-03-27 07:15] LABS: Estimated Average Glucose 111 mg/dL; Hemoglobin A1C 135.4543 umol/L; Hemoglobin A1c % 5.5 % (<6.0); Total Hemoglobin (HGBA1C) 3729.9993 umol/L
[2024-03-27 07:29] LABS: Creatinine Urine 184.96 mg/dL; Microalbum/Creatinine Ratio Ur 36.2 ug/mg cr (<30)
[2024-03-27 07:33] LABS: Alanine Aminotransferase 23 U/L (0-31); Albumin Level 4.3 g/dL (3.5-5.0); Alkaline Phosphatase 85 U/L (39-117); Anion Gap 13 (12-20); Aspartate Amino Transferase 28 U/L (5-31); Bilirubin Total 0.8 mg/dL (0.0-1.0); Blood Urea Nitrogen 20 mg/dL (9-16); Calcium 9.9 mg/dL (8.4-10.2); Carbon Dioxide 27 mmol/L (22-29); Chloride 104 mmol/L (96-108); Cholesterol 177 mg/dL (<200); Estimated Glomerular Filt Rate > 60; Glucose Fasting 107 mg/dL (60-99); HDL Cholesterol 49 mg/dL (>40); LDL Cholesterol Calculated 97 mg/dL (<100); Potassium 4.2 mmol/L (3.3-5.1); Sodium 140 mmol/L (135-145); Total Protein 7.1 g/dL (6.5-8.0); Triglycerides 156 mg/dL (<150)
[2024-03-27 08:30] LABS: Vitamin D 25-OH Total 50.7 ng/mL (>30)
== END 2024-03-27 06:18 | disposition home or self-care (01) ==
LOC: HO.LAB 06:17
PROVIDERS: PCP Internal Medicine; Visit Provider Internal Medicine
DX: E11.9 Type 2 diabetes mellitus without complications (principal); R80.9 Proteinuria, unspecified; Z79.4 Long term (current) use of insulin; E78.5 Hyperlipidemia, unspecified; E55.9 Vitamin D deficiency, unspecified
CPT/HCPCS: 36415; 80053; 80061; 82043; 82306; 82570; 83036

== ENCOUNTER 2024-09-28 09:15 | Outpatient (REF) | payer MEDICARE, SELFPAY ==
[2024-09-28 11:38] LABS: Alanine Aminotransferase 24 U/L (0-31); Albumin Level 4.1 g/dL (3.5-5.0); Alkaline Phosphatase 70 U/L (39-117); Anion Gap 11 (12-20); Aspartate Amino Transferase 25 U/L (5-31); Bilirubin Total 0.8 mg/dL (0.0-1.0); Blood Urea Nitrogen 20 mg/dL (9-16); Calcium 9.3 mg/dL (8.4-10.2); Carbon Dioxide 28 mmol/L (22-29); Chloride 106 mmol/L (96-108); Cholesterol 180 mg/dL (<200); Estimated Glomerular Filt Rate > 60; Glucose Fasting 91 mg/dL (60-99); HDL Cholesterol 53 mg/dL (>40); LDL Cholesterol Calculated 104 mg/dL (<100); Potassium 4.1 mmol/L (3.3-5.1); Sodium 141 mmol/L (135-145); Total Protein 6.6 g/dL (6.5-8.0); Triglycerides 117 mg/dL (<150)
[2024-09-28 11:46] LABS: Vitamin D 25-OH Total 58.1 ng/mL (>30)
[2024-09-28 12:07] LABS: Creatinine Urine 304.99 mg/dL
== END 2024-09-28 09:16 | disposition home or self-care (01) ==
LOC: HO.LAB 09:15
PROVIDERS: PCP Internal Medicine; Visit Provider Internal Medicine
DX: E11.9 Type 2 diabetes mellitus without complications (principal); E78.5 Hyperlipidemia, unspecified; R80.9 Proteinuria, unspecified; Z79.4 Long term (current) use of insulin; E55.9 Vitamin D deficiency, unspecified
CPT/HCPCS: 36415; 80053; 80061; 82043; 82306; 82570; 82607; 82746

== ENCOUNTER 2024-10-02 07:18 | Outpatient (AMB) | payer MEDICARE, SELFPAY ==
--- NOTE | 2024-10-02 07:39 | A.OFFPC_ITS ---
Vital Signs 10/02/24 07:40 Height 5 ft 4.5 in Weight 181 lb 8 oz BMI 30.7 BP 112/62 Blood Pressure Location Lt brachial Position Sitting Intake Visit Reasons: annual exam Intake Note: Patient here for an annual physical exam Medical Photographer Required: No Accompanied by: Self / Same As Patient Allergies morphine Allergy (Unknown, Verified 10/02/24 07:51) vomiting penicillin G [Penicillin G] Allergy (Unknown, Verified 10/02/24 07:51) RASH penicillin V Allergy (Unknown, Verified 10/02/24 07:51) vomiting Sulfa (Sulfonamide Antibiotics) [Sulfa (Sulfonamides)] Allergy (Unknown, Verified 10/02/24 07:51) NAUSEA/VOMITING/RASH, vomiting, vomiting pravastatin Adverse Reaction (Unknown, Verified 10/02/24 07:51) myalgias metformin Adverse Reaction (Intermediate, Uncoded 10/02/24 07:51) abdominal discomfort Medication List - Last Reconciled 10/02/24 by Winnie Gandara MD albuterol sulfate 90 mcg/actuation 2 puffs inhalation Q6H PRN aspirin (Adult Aspirin Regimen) 81 mg PO DAILY 90 days blood sugar diagnostic (FreeStyle Lite Strips) As directed 3 x/day blood-glucose sensor (Dexcom G7 Sensor device) As directed cholecalciferol (vitamin D3) 25 mcg PO DAILY ezetimibe 10 mg PO DAILY 90 days insulin glargine (Lantus Solostar U-100 Insulin) 25 units (0.25 mL) subcut DAILY 90 days lancets (FreeStyle Lancets) As directed lisinopril 20 mg PO DAILY 90 days omeprazole 20 mg PO QAM pen needle, diabetic 1 ea subcut DAILY 90 days semaglutide (Ozempic) 1 mg (0.75 mL) subcut QWEEK 4 weeks semaglutide (Ozempic) 2 mg (0.75 mL) subcut QWEEK 90 days trazodone 50 mg PO BEDTIME PRN 90 days zolpidem 10 mg PO BEDTIME PRN 90 days Tobacco use date assessed: 10/02/24 Fall risk assessment: No Falls in past year Last assessed Fall Risk: 10/02/24 Dental Screening Dental Screen Date: 10/02/24 Did you have a dental visit in the last 12 months?: No Did you have a dental problem in the last 6 months where you did not have access to dental care?: No Was dental information given to patient?: Patient declined HPI HPI Comments History of Present Illness Details The patient is a 68-year-old female presenting for a physical examination and preventive care. She acknowledged the absence of a pneumonia vaccine after age 64 and consented to receive it during the visit. She also stated having a tetanus vaccine within the last decade. Mammogram and bone density testing are due, as identified from her screening history. She requests a mammogram appointment due to her family and personal history of cancer. The patient has neither undergone a colonoscopy nor found success with [id number]-[id number] preparations, yet is willing to try again using alternate prep methods. Her latest kidney function, glucose, A1c, and liver enzyme results were normal, with elevated vitamin D necessitating dosage adjustment. She has a history of a heart attack and maintains controlled levels of diabetes and hyperlipidemia. There is noted weight loss and improvement in blood pressure. - Administer pneumonia vaccine today. - Discussed tetanus vaccine administrati on in the past 10 years. - Mammogram scheduled; last performed in August last year. - Colonoscopy discussed; option of tryin g alternative prep methods was suggested. - Bone density was noted as normal in [facility] 2022. - Review and adjustment of vitamin D sup plementation due to elevated levels. - Discussed management of LDL cholestero l and weight loss strategies. 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 Diabetes type 2, controlled Surgical History History of back surgery Hx of shoulder surgery Hx of hernia repair Hx of hysterectomy Family History Mother No known problems Father Diabetes Other Substance use disorder Social History Household Members: None Housing: House Alcohol intake: current Alcohol intake frequency: holidays/special occasions only Patient Tobacco Use Status: Never used Tobacco e-Cigarette/Vaping Use: Never Used Second Hand Smoke Exposure: No service: No Current occupational status: retired and disabled Cognitive needs: No Hearing needs: No Vision needs: Yes (Glasses) Questionnaire PHQ-9 Over the last 2 weeks, how often have you been bothered by any of the following problems? 1. Little interest or pleasure in doing things: not at all 2. Feeling down, depressed, or hopeless: not at all 3. Trouble falling or staying asleep, or sleeping too much: nearly every day 4. Feeling tired or having little energy: not at all 5. Poor appetite or overeating: not at all 6. Feeling bad about yourself - or that you are a failure or have let yourself or your family down: not at all 7. Trouble concentrating on things, such as reading the newspaper or watching television: not at all 8. Moving or speaking so slowly that other people could have noticed. Or the opposite - being so fidgety or restless that you have been moving around a lot more than usual: not at all 9. Thoughts that you would be better off or of hurting yourself in some way: not at all Total score: 3 Depression Screening Interpretation: Negative Depression Screening Done: Yes 15048 - PHQ-9 Billing: Yes Source: Developed by Drs. Guero Esparza, Elizabet Maldonado, Cecil Cedeno and colleagues, with an educational matthew from [employer]. Thrive Questionnaire Date Thrive assessed: 10/02/24 I am a: Patient What is your living situation today?: I have a steady place to live Within the past 12 months, did the food you bought not last and you didn't have the money to get more?: Never true Within the past 12 months, did you worry whether your food would run out before you got money to buy more?: Never true Do you have trouble paying for medicines?: No Do you have trouble getting transportation to medical appointments?: No Do you have trouble paying your heating and electricity bill?: No Do you have trouble taking care of your child, family member or friend?: No Do you have trouble with day-to-day activities such as bathing, preparing meals, shopping, managing finances, etc.?: No Are you currently unemployed and looking for a job?: No Are you interested in more education?: No Please select the resources that you would like help with: None Currently or been in a relationship where the following occur: I choose not to answer THRIVE Score: 0 AUDIT C Alcohol Use Questionnaire (AUDIT-C) 1. How often do you have a drink containing alcohol?: Never Total Score: 0 Score Reviewed/Action Taken: No KEITH-7 AMB Questionnaire KEITH-7 Date KEITH - 7 assessed: 10/02/24 Feeling nervous, anxious, or on edge: 0 = Not at all Not being able to stop or control worryin = Not at all Worrying too much about different things: 0 = Not at all Trouble relaxin = Not at all Being so restless that it is hard to sit still: 0 = Not at all Becoming easily annoyed or irritable: 0 = Not at all Feeling afraid as if something awful might happen: 0 = Not at all Total KEITH-7 score (0-4 normal; 5-9 mild; 10-14 moderate; 15-21 severe): 0 Source: Developed by Drs. Guero Esparza, Elizabet Maldonado, Cecil Cedeno and colleagues, with an educational matthew from [employer]. KEITH-7 Assessment Billing KEITH-7 Assessment Tool: KEITH-7 Assessment 26880 Review of Systems Const All systems reviewed & are unremarkable except as noted in HPI and below Card Denies chest pain at rest, Denies chest pain with activity, Denies edema, Denies irregular heart rhythm, Denies claudication, Denies dyspnea, Denies dyspnea on exertion, Denies orthopnea, Denies paroxysmal nocturnal dyspnea and Denies slow heart rate Resp Denies cough, Denies dyspnea and Denies dyspnea on exertion GI Denies abdominal pain, Denies change in bowel habits, Denies excessive flatus, Denies nausea and Denies vomiting Denies urinary incontinence, Denies urinary hesitancy and Denies urinary urgency Musc Denies abnormal gait, Denies atrophy, Denies deformity and Denies limited range of motion Neuro Denies abnormal gait, Denies behavioral changes, Denies confusion and Denies lack of coordination Psych Denies behavioral changes and Denies confusion Physical exam (Primary Care) Vital Signs: Last Vital Signs BP 112/62 10/02/24 07:40 BMI result Body Mass Index 30.7 BMI Assessment/Plan discussion: High BMI High, discussed plan: lifestyle, weight reduction, dietary and physical activity Tobacco/Smoking Status: Tobacco use Status Tobacco use date assessed 10/02/24 10/02/24 07:49 Patient Tobacco Use Status Never used Tobacco 10/02/24 07:45 e-Cigarette/Vaping Use Never Used 10/02/24 07:45 PHQ-9: PHQ-9 Score PHQ-9: Total score 3 10/02/24 08:21 Depression Screening Interpretation: Negative Thrive Assessment: Date of Thrive Assessment Date Thrive assessed 10/02/24 10/02/24 07:49 Currently or been in a relationship where the following occur: I choose not to answer Const General: No confusion Orientation/consciousness: patient oriented x3 and No confusion HENMT Head: Yes normal to inspection, Yes normocephalic and Yes atraumatic Ears: external ears normal Eyes General: appearance normal, both eyes and all related structures Eyelids: Yes eyelids normal Conjunctivae: conjunctivae normal Neck Neck: Yes normal visual inspection and Yes supple Resp Effort & Inspection: normal respiratory effort Auscultation: clear to auscultation bilaterally Cardio Jugular venous distension: no JVD Rate: regular rate Rhythm: regular rhythm Heart sounds: S1 normal heart sound present and S2 normal heart sound present GI Inspection: Yes normal to inspection Palpation (GI): Soft to palpation and nontender Auscultation: normal bowel sounds Skin General skin exam: no rashes or lesions noted Neuro General: patient oriented x3, no focal motor deficits and No confusion Extrem General: Yes full ROM Psych Appearance: grossly normal Results AMB Hemoglobin A1c AMB Hemoglobin A1c 5.2 % Last Edit by JESSICA Rosas on 10/02/24 08:0 6 Immunizations pneumoc 20-grupo conj-dip cr(PF) 0.5 mL IM syringe Performing Provider: Winnie Gandara MD [place] [facility] [place] [facility] Administered by: JESSICA Rosas on 10/02/24 08:22 Dose Route Admin Location Dispensed Lot Number Expiration Date [facility] Main[employer] Consultant 0.5 mL IM Left Deltoid 0.5 mL [id number] 06/17/25 [employer]YETH/PFIZER VIS Given Date VIS Provided VIS Publication Date 10/02/24 Single Vaccine 22 Eligibility Eligibility Date Funding Source Not [facility] Eligible 10/02/24 Private Results Reviewed Results Reviewed: Laboratory Last Values Hgb A1c (Clinic) 5.2 % (4.0-6.0) 10/02/24 07:50 Coding Level of Care Code Est Pt Prev Care >65y(14594) Diagnoses Adult general medical exam Z00.00 Type 2 diabetes mellitus without complication, with long-term current use of insulin E11.9; Z79.4 Diabetes mellitus type: type 2 Diabetes mellitus complication status: without complication Additional Codes KEITH-7 Assessment Billing - KEITH-7 Assessment Tool: KEITH-7 Assessment 41530 ([id number]) PHQ-9 - 08421 - PHQ-9 Billing: Yes ([id number]) Time Spent (min) 31 Assessment & Plan Assessment & Plan (1) Adult general medical exam: Code(s): Z00.00 - Encounter for general adult medical examination without abnormal findings Category: Medical (2) Diabetes mellitus, with long-term current use of insulin: Code(s): E11.9 - Type 2 diabetes mellitus without complications; Z79.4 - buttermaker (current) use of insulin Category: Medical Qualifiers: Diabetes mellitus type: type 2 Diabetes mellitus complication status: without complication Qualified Code(s): E11.9 - Type 2 diabetes mellitus wi thout complications; Z79.4 - buttermaker (current) use of insulin Plan Higher dose of Ambien prescription, and her Ozempic dosage remains at 2 mg given its efficacy and coverage for her diabetic and cardiovascular profile. Patient was informed and verbally consented to the use of an ambient scribe for clinic note documentation during this visit. We discussed the importance of updating her pneumonia vaccination status, confirming her recent tetanus vaccination, and the role of regular mammograms and colonoscopy given her history and family cancer risks provided context for scheduling. I explained the need to adjust vitamin D supplementation to mitigate risks associated with the elevated levels highlighted in her labs. Ambien was revised to a time-release formula after a detailed conversation on her sleep challenges. Additionally, we reviewed the benefits of Ozempic as both a glycemic control and cardiovascular protective agent given her history of myocardial infarction, confirming it at 2 mg. The patient expressed understanding of potential holistic weight management programs, acknowledging potential limitations with insurance for friends without similar diagnoses. I reiterated the importance of a healthy lifestyle and regular follow-ups for comprehensive care management. Orders: Orders AMB Hemoglobin A1c Today E11.9 - Type 2 diabetes mellitus without complications, Z79.4 - jail (current) use of insulin Lipid Panel 6 Months E78.5 - Hyperlipidemia, unspecified Microalbumin, Random (w Creat) 6 Months R80.9 - Proteinuria, unspecified Comprehensive [place]. Panel Fast 6 Months E11.9 - Type 2 diabetes mellitus without complications, Z79.4 - jail (current) use of insulin MM tomosynthesis screening BI Today Z12.31 - Encounter for screening mammogram for malignant neoplasm of breast XR DEXA axial skeleton Today Z78.0 - Asymptomatic menopausal state Pneumococcal 20 Immunization Today Z23 - Encounter for immunization Vitamin D 25-OH Total 6 Months E55.9 - Vitamin D deficiency, unspecified Referrals Open Access Screening Colonoscopy Referral Z12.12 - Encounter for screening for malignant neoplasm of rectum Medications: New zolpidem ER 12.5 mg PO BEDTIME 90 tabs 0RF 90 days Changed From insulin glargine (Lantus Solostar U-100 Insulin) 25 units (0.25 mL) subcut DAILY 90 days 22.5 mL 3RF E11.9 - Type 2 diabetes mellitus without complications To insulin glargine (Lantus Solostar U-100 Insulin) 20 units (0.2 mL) subcut DAILY 18 mL 3RF 90 days E11.9 - Type 2 diabetes mellitus without complications Discontinued semaglutide (Ozempic) Discontinued Reason: Patient Completed Course 1 mg (0.75 mL) subcut QWEEK 4 weeks 3 mL 11RF E11.9 - Type 2 diabetes mellitus without complications, Z79.4 - buttermaker (current) use of insulin zolpidem Discontinued Reason: Patient Completed Course 10 mg PO BEDTIME 90 days PRN 90 tabs 0RF insomnia Patient Instructions: - Receive the pneumonia vaccine today. - Arrange a mammogram appointment. - Schedule a colonoscopy and inquire about alternative preparation options. - Take vitamin D supplement every other day to lower levels. - Continue current medications and adjust Ambien to 12.5 mg time-release formula. - Maintain regular monitoring of blood glucose levels. - Follow a healthy diet and exercise routine for weight management. - Return for follow-up appointments as scheduled.
[2024-10-02 07:40] VITALS: BP 112/62; BMI 30.7
== END 2024-10-02 08:25 | disposition home or self-care (01) ==
LOC: HO.HMCH 07:19
PROVIDERS: PCP Internal Medicine; Visit Provider Internal Medicine
DX: Z00.00 Encounter for general adult medical examination without abnormal findings (principal); E11.9 Type 2 diabetes mellitus without complications; Z79.4 Long term (current) use of insulin; Z23 Encounter for immunization

== ENCOUNTER → 2024-10-02 07:18 | Outpatient (BNVA) | payer MEDICARE, SELFPAY | PROVIDERS: PCP Internal Medicine; Visit Provider Internal Medicine | DX: Z00.00 Encounter for general adult medical examination without abnormal findings (principal); Z23 Encounter for immunization; E11.9 Type 2 diabetes mellitus without complications; Z79.4 Long term (current) use of insulin | CPT/HCPCS: 83036; 90471; 90677; 96127; 99397 ==

== ENCOUNTER 2024-10-05 06:46 | Outpatient (REF) | payer MEDICARE, SELFPAY ==
[2024-10-05 08:00] LABS: Alanine Aminotransferase 25 U/L (0-31); Albumin Level 4.3 g/dL (3.5-5.0); Alkaline Phosphatase 77 U/L (39-117); Anion Gap 11 (12-20); Aspartate Amino Transferase 26 U/L (5-31); Bilirubin Total 0.7 mg/dL (0.0-1.0); Blood Urea Nitrogen 18 mg/dL (9-16); Calcium 9.5 mg/dL (8.4-10.2); Carbon Dioxide 28 mmol/L (22-29); Chloride 107 mmol/L (96-108); Cholesterol 177 mg/dL (<200); Estimated Glomerular Filt Rate > 60; Glucose Fasting 97 mg/dL (60-99); HDL Cholesterol 49 mg/dL (>40); LDL Cholesterol Calculated 97 mg/dL (<100); Potassium 4.3 mmol/L (3.3-5.1); Sodium 142 mmol/L (135-145); Total Protein 6.8 g/dL (6.5-8.0); Triglycerides 158 mg/dL (<150)
[2024-10-05 08:18] LABS: Vitamin D 25-OH Total 57.5 ng/mL (>30)
[2024-10-05 08:39] LABS: Creatinine Urine 236.79 mg/dL; Microalbum/Creatinine Ratio Ur 20.2 ug/mg cr (<30)
== END 2024-10-05 06:47 | disposition home or self-care (01) ==
LOC: HO.LAB 06:46
PROVIDERS: PCP Internal Medicine; Visit Provider Internal Medicine
DX: E78.5 Hyperlipidemia, unspecified (principal); R80.9 Proteinuria, unspecified; E11.9 Type 2 diabetes mellitus without complications; E55.9 Vitamin D deficiency, unspecified; Z79.4 Long term (current) use of insulin
CPT/HCPCS: 36415; 80053; 80061; 82043; 82306; 82570

== ENCOUNTER 2025-01-23 07:46 | Outpatient (REF) | payer MEDICARE, SELFPAY ==
--- NOTE | ~2025-01-23 | MM_ITS ---
EXAMINATION: DXA BONE DENSITY AXIAL HISTORY: Z78.0 - Asymptomatic menopausal state TECHNIQUE: [employer] Dual energy absorptiometry (DEXA) of the lumbar spine, total left hip, and femoral neck was performed. COMPARISON: Comparison is made with the prior examination dated 07/08/2022. FINDINGS: The bone mineral density of the lumbar spine is 1.425 g/cm2, corresponding to a T-score of 2.0, and a Z-score of 3.5. This is indicative of normal bone mineral density. This represents a BMD change of -1.4% compared to the prior exam. This is not statistically significant. The bone mineral density of the left total hip is 1.091 g/cm2, corresponding to a T-score of 0.7, and a Z-score of 2.0. This is indicative of normal bone mineral density.- This represents a BMD change of 4.9% compared to the prior exam. This is statistically significant. The bone mineral density of the left femoral neck is 1.100 g/cm2, corresponding to a T-score of 0.4, and a Z-score of 2.0. This is indicative of normal bone mineral density. This represents a BMD change of 4.1% compared to the prior exam. FRACTURE RISK: The FRAX index suggests a ten year probability of major osteoporotic fracture of 6.5%, and of hip fracture 0.2%. MM/XR DEXA axial skeleton IMPRESSION: Based on bone mineral density, and according to World Health Organization (WHO) criteria, the diagnosis is consistent with normal bone mineral density. Statistically, 68% of repeat scans fall within 1 SD (+/- 0.010 g/cm2 for AP spine L1-L4) and 1 SD (+/- 0.012 g/cm2 for femur total) FRAX is a trademark of the [employer] [place] [facility] Metabolic [employer] Disease, a World Health Organization (WHO) Collaborating Center. Electronically signed by: Guero Washington MD 01/23/2025 08:59 AM EDT
--- NOTE | ~2025-01-23 | MM_ITS ---
EXAMINATION: MM SCREENING DIGITAL BREAST TOMOSYNTHESIS, BILATERAL CLINICAL INFORMATION: Screening. Asymptomatic. COMPARISON: Mammography: Comparison is made with available priors TECHNIQUE: Digital breast mammography with tomosynthesis is performed in both the craniocaudal and mediolateral oblique views along with computer-aided detection (CAD). FINDINGS: There are scattered areas of fibroglandular density (ACR BI-RADS breast composition Category b). There are no significant masses, abnormal calcifications, or other abnormalities. MM/MM tomosynthesis screening BI IMPRESSION: No mammographic evidence of malignancy. ASSESSMENT: BI-RADS BI-RADS 1 - Negative RECOMMENDATION: Routine annual mammography screening. 1 year F/U This examination should not preclude the clinical evaluation of a suspicious palpable abnormality. This patient's information was entered into a reminder system with a target due date for their next mammogram. Electronically signed by: Mi Meraz DO 01/26/2025 05:29 PM EDT
== END 2025-01-23 07:47 | disposition home or self-care (01) ==
LOC: HO.MAMMO 07:46
PROVIDERS: PCP Internal Medicine; Visit Provider Internal Medicine
DX: Z12.31 Encounter for screening mammogram for malignant neoplasm of breast (principal); Z13.820 Encounter for screening for osteoporosis; Z78.0 Asymptomatic menopausal state
CPT/HCPCS: 77063; 77067; 77080

== ENCOUNTER → 2025-01-23 08:45 | Outpatient (BNV) | payer MEDICARE, SELFPAY | PROVIDERS: PCP Internal Medicine; Visit Provider Radiology Diagnostic Radiology | DX: E28.39 Other primary ovarian failure (principal) | CPT/HCPCS: 77080 ==

== ENCOUNTER 2025-04-16 07:11 | Outpatient (AMB) | payer MEDICARE, SELFPAY ==
[2025-04-16 07:35] VITALS: BP 136/70; PULSE 72; O2SAT 98; BMI 29.2
--- NOTE | 2025-04-16 07:35 | MHC.PC.OV ---
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 Accompanied by: Self / Same As Patient Allergies morphine Allergy (Unknown, Verified 04/16/25 07:48) vomiting penicillin G (Penicillin G) Allergy (Unknown, Verified 04/16/25 07:48) RASH penicillin V Allergy (Unknown, Verified 04/16/25 07:48) vomiting Sulfa (Sulfonamide Antibiotics) (Sulfa (Sulfonamides)) Allergy (Unknown, Verified 04/16/25 07:48) NAUSEA/VOMITING/RASH, vomiting, vomiting ezetimibe Adverse Reaction (Intermediate, Verified 04/16/25 07:58) Headache pravastatin Adverse Reaction (Unknown, Verified 04/16/25 07:48) myalgias metformin Adverse Reaction (Intermediate, Uncoded 04/16/25 07:48) abdominal discomfort Medication List - Last Reconciled 04/16/25 by Winnie Gandara MD albuterol sulfate 90 mcg/actuation 2 puffs inhalation Q6H PRN aspirin (Adult Aspirin Regimen) 81 mg PO DAILY 90 days blood sugar diagnostic (FreeStyle Lite Strips) As directed 3 x/day blood-glucose sensor (Dexcom G7 Sensor device) As directed cholecalciferol (vitamin D3) 25 mcg PO DAILY lancets (FreeStyle Lancets) As directed lisinopril 20 mg PO DAILY 90 days omeprazole 20 mg PO QAM pen needle, diabetic 1 ea subcut DAILY 90 days semaglutide (Ozempic) 2 mg (0.75 mL) subcut QWEEK 90 days trazodone 50 mg PO BEDTIME PRN 90 days zolpidem 10 mg PO BEDTIME 30 days zolpidem ER 12.5 mg PO BEDTIME 90 days Tobacco use date assessed: 10/02/24 Fall risk assessment: No Falls in past year Last assessed Fall Risk: 04/16/25 Dental Screening Dental Screen Date: 10/02/24 HPI HPI Comments History of Present Illness Details The patient is a 69-year-old individual presenting for a follow-up visit for management of multiple chronic conditions. The patient has well-controlled diabetes with a recent hemoglobin A1c of 5% and well-controlled hypertension with a blood pressure of 136/70 mmHg. The patient has a history of sleep maintenance insomnia and reports that while zolpidem 10 mg helps with sleep initiation, it does not last through the night. A previous trial of trazodone for sleep was ineffective. The patient desires a switch to zolpidem 12.5 mg extended-release, but this has been denied by insurance pending a prior authorization. Regarding hyperlipidemia, the patient's last LDL was 97 mg/dL with a goal of 70 mg/dL. The patient has a history of statin intolerance, reporting muscle aches with pravastatin, and also experienced muscle aches in the arm and daily headaches with ezetimibe, which resolved upon discontinuation. Due to these side effects, the patient refuses to take statin therapy despite insurance recommendations. The patient's known allergies include morphine (vomiting), penicillin (rash), and sulfa drugs (nausea, vomiting, rash). The patient also has intolerances to metformin (abdominal discomfort) and pravastatin (muscle aches). The patient has a past medical history of cancer which was surgically removed. The patient's family history is significant for a sister who from colon cancer and a brother who from esophageal cancer. For health maintenance, the patient's bone density scan and mammogram from January were normal and up-to-date, respectively. The patient completed a Cologuard test in 2022 and is due for the next screening next year, for which a colonoscopy is planned due to family history. The patient had chickenpox as a child. [facility] Medical History (Updated 04/16/25 @ 08:13 by Winnie Gandara MD) Hx of myocardial infarction Obesity (BMI 30-39.9) Dyslipidemia Hypertension Diabetic polyneuropathy associated with type 2 diabetes mellitus FDC (current) use of insulin Diabetes type 2, controlled Surgical History History of back surgery Hx of shoulder surgery Hx of hernia repair Hx of hysterectomy Family History Mother No known problems Father Diabetes Other Substance use disorder Social History Household Members: None Housing: House Alcohol intake: current Alcohol intake frequency: holidays/special occasions only Patient Tobacco Use Status: Never used Tobacco Tobacco use type: Cigarette e-Cigarette/Vaping Use: Never Used Second Hand Smoke Exposure: No service: No Current occupational status: retired and disabled Cognitive needs: No Hearing needs: No Vision needs: Yes (Glasses) Questionnaire PHQ-9 Over the last 2 weeks, how often have you been bothered by any of the following problems? 1. Little interest or pleasure in doing things: not at all 2. Feeling down, depressed, or hopeless: not at all 3. Trouble falling or staying asleep, or sleeping too much: nearly every day 4. Feeling tired or having little energy: not at all 5. Poor appetite or overeating: not at all 6. Feeling bad about yourself - or that you are a failure or have let yourself or your family down: not at all 7. Trouble concentrating on things, such as reading the newspaper or watching television: not at all 8. Moving or speaking so slowly that other people could have noticed. Or the opposite - being so fidgety or restless that you have been moving around a lot more than usual: not at all 9. Thoughts that you would be better off or of hurting yourself in some way: not at all Total score: 3 Depression Screening Interpretation: Negative Depression Screening Done: Yes 07357 - PHQ-9 Billing: Yes Source: Developed by Drs. Guero Esparza, Elizabet Maldonado, Cecil Cedeno and colleagues, with an educational matthew from [employer]. Thrive Questionnaire Date Thrive assessed: 10/02/24 I am a: Patient What is your living situation today?: I have a steady place to live Within the past 12 months, did the food you bought not last and you didn't have the money to get more?: Never true Within the past 12 months, did you worry whether your food would run out before you got money to buy more?: Never true Do you have trouble paying for medicines?: No Do you have trouble getting transportation to medical appointments?: No Do you have trouble paying your heating and electricity bill?: No Do you have trouble taking care of your child, family member or friend?: No Do you have trouble with day-to-day activities such as bathing, preparing meals, shopping, managing finances, etc.?: No Are you currently unemployed and looking for a job?: No Are you interested in more education?: No Please select the resources that you would like help with: None Currently or been in a relationship where the following occur: I choose not to answer THRIVE Score: 0 AUDIT C Alcohol Use Questionnaire (AUDIT-C) 1. How often do you have a drink containing alcohol?: Monthly or less 2. How many drinks containing alcohol do you have on a typical day when you are drinking?: 1 or 2 3. How often do you have six or more drinks on one occasion?: Never Total Score: 1 Score Reviewed/Action Taken: No KEITH-7 AMB Questionnaire KEITH-7 Date KEITH - 7 assessed: 10/02/24 Source: Developed by Drs. Guero Esparza, Elizabet Maldonado, Cecil Cedeno and colleagues, with an educational matthew from [employer]. Review of Systems Const All systems reviewed & are unremarkable except as noted in HPI and below Card Denies chest pain at rest, Denies chest pain with activity, Denies edema, Denies irregular heart rhythm, Denies claudication, Denies dyspnea, Denies dyspnea on exertion, Denies orthopnea, Denies paroxysmal nocturnal dyspnea and Denies slow heart rate Resp Denies cough, Denies dyspnea and Denies dyspnea on exertion GI Denies abdominal pain, Denies change in bowel habits, Denies excessive flatus, Denies nausea and Denies vomiting Physical exam (Primary Care) Vital Signs: Last Vital Signs Pulse 72 04/16/25 07:35 BP 136/70 04/16/25 07:35 Pulse Ox 98 04/16/25 07:35 Oxygen Delivery Method Room Air 04/16/25 07:35 BMI result Body Mass Index 29.2 Tobacco/Smoking Status: Tobacco use Status Tobacco use date assessed 10/02/24 04/16/25 07:36 Patient Tobacco Use Status Never used Tobacco 04/16/25 07:36 Tobacco use type Cigarette 04/16/25 07:36 e-Cigarette/Vaping Use Never Used 04/16/25 07:36 PHQ-9: PHQ-9 Score PHQ-9: Total score 3 04/16/25 08:09 Depression Screening Interpretation: Negative Thrive Assessment: Date of Thrive Assessment Date Thrive assessed 10/02/24 04/16/25 07:36 Currently or been in a relationship where the following occur: I choose not to answer Resp Effort & Inspection: normal respiratory effort Auscultation: clear to auscultation bilaterally Cardio Jugular venous distension: no JVD Rate: regular rate Rhythm: regular rhythm Heart sounds: S1 normal heart sound present and S2 normal heart sound present Extrem General: Yes full ROM Office Procedures Flu Questionnaire Does the patient have a severe egg allergy?: No Does the patient have severe life threatening allergies?: No Does the patient have a fever or illness today?: No Has the patient ever had Guillain-Roch[place] Syndrome?: No Has the patient ever had any past reaction to a flu shot?: No Results AMB Hemoglobin A1c AMB Hemoglobin A1c 5.0 % Last Edit by Kia Brown CMA on 04/16/25 07:50 Immunizations Fluarix [id number] (PF) 45 mcg (15 mcg x 3)/0.5 mL IM syringe Performing Provider: Winnie Gandara MD 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 0.5 mL IM Left Deltoid 0.5 mL [id number] 11/13/25 [id number] [employer] VIS Given Date VIS Provided VIS Publication Date 04/16/25 Single Vaccine 24 Eligibility Eligibility Date Funding Source Not [facility] Eligible 04/16/25 Private Results Reviewed Results Reviewed: Laboratory Last Values Hgb A1c (Clinic) 5.0 % (4.0-6.0) 04/16/25 07:49 Coding Level of Care Code Complex visit Add On G2211 Diagnoses Diabetes mellitus without complication E11.9 Primary hypertension I10 Hypertension type: primary hypertension Dyslipidemia E78.5 Insomnia G47.00 Additional Codes PHQ-9 - 91183 - PHQ-9 Billing: Yes ([id number]) Time Spent (min) 23 Assessment & Plan Assessment & Plan (1) Diabetes mellitus without complication: Code(s): E11.9 - Type 2 diabetes mellitus without complications Category: Medical (2) Hypertension: Code(s): I10 - Essential (primary) hypertension Category: Medical Qualifiers: Hypertension type: primary hypertension Qualified Code(s): I10 - Essential (primary) hypertension (3) Dyslipidemia: Code(s): E78.5 - Hyperlipidemia, unspecified Category: Medical (4) Insomnia: Code(s): G47.00 - Insomnia, unspecified Category: Medical Plan Plan 1. Insomnia Will attempt to obtain prior authorization for zolpidem 12.5 mg extended-release, citing the ineffectiveness of trazodone and inadequate duration of action of zolpidem 10 mg. A prescription for a 90-day supply through [employer] has been sent. If a 30-day supply is approved first, the patient agrees to this approach. 2. Hyperlipidemia The patient's last LDL was 97 mg/dL. Given the history of muscle aches with pravastatin and muscle aches/headaches with ezetimibe, the patient firmly declines statin therapy. Will respect the patient's decision and continue to monitor lipids. 3. Type 2 Diabetes Mellitus Continue current management, as the hemoglobin A1c is excellent at 5%. The patient will verify insurance coverage for the [employer] continuous glucose monitor for the upcoming year and will provide an update if a change to an alternative device, such as the Myriam, is necessary. 4. Hypertension Continue lisinopril. Blood pressure goal is equal or less than 130/80. Orders: Orders Vitamin D 25-OH Total 6 Months E55.9 - Vitamin D deficiency, unspecified Comprehensive [place]. 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
== END 2025-04-16 08:14 | disposition home or self-care (01) ==
LOC: HO.HMCH 07:12
PROVIDERS: PCP Internal Medicine; Visit Provider Internal Medicine
DX: E11.69 Type 2 diabetes mellitus with other specified complication (principal); I10 Essential (primary) hypertension; E78.5 Hyperlipidemia, unspecified; G47.00 Insomnia, unspecified; Z13.9 Encounter for screening, unspecified; Z23 Encounter for immunization

== ENCOUNTER → 2025-04-16 07:11 | Outpatient (BNVA) | payer MEDICARE, SELFPAY | PROVIDERS: PCP Internal Medicine; Visit Provider Internal Medicine | DX: I10 Essential (primary) hypertension (principal); E11.9 Type 2 diabetes mellitus without complications; E78.5 Hyperlipidemia, unspecified; G47.00 Insomnia, unspecified; Z23 Encounter for immunization; Z13.31 Encounter for screening for depression | CPT/HCPCS: 83036; 90471; 90656; 96127; 99212 ==